=== PATIENT | male | born 1965 | race African-American/Black ===

== ENCOUNTER → 2016-12-09 | Day surgery (SDC) | payer OTHER ==
[~2016-12-09] MED LIST: NO MEDICATIONS
--- NOTE | ~2016-12-09 | OR ---
Unit #: [id number] #: [id number] Patient: PETAR HELLER [id number] [address] [address] [id number] MR#: [id number] NAME: PETAR HELLER ROOM: Date of Procedure: 12/09/2016 Admission Date: 12/09/2016 Surgeon: Shravan Arauz M.D. : 1965 Attending Physician: Shravan Arauz M.D. Primary Care Physician: Destinee Phillips M.D. OPERATIVE REPORT PROCEDURE PERFORMED Colonoscopy to cecum. INDICATIONS FOR PROCEDURE Average risk for colorectal cancer. MEDICATIONS Monitored anesthesia. POSTOP FINDINGS 1. Normal exam. 2. Good prep. 3. Internal hemorrhoids. PLAN Repeat colonoscopy in 10 years. DESCRIPTION OF PROCEDURE The patient was explained of the procedure, risks, and benefits along with risks and benefits of anesthesia. He was brought to the endoscopy room. Propofol anesthesia was given. Rectal exam was done, which was normal. Colonoscope was lubricated, passed up the rectum, advanced under direct vision all the way to the cecum. Cecum was identified by ileocecal valve and appendiceal orifice. I then started to pull the scope out carefully looking. No polyps, masses, or colitis were seen. Mucosa was normal and healthy. I retroflexed in the rectum, internal hemorrhoids noted. Gently, the scope was pulled out. He tolerated it well. Dictated by... Lisa Calvo/kareem TD: 12/10/2016 08:54 JOB #: [id number] CC: Destinee Phillips M.D. Unit #: [id number] #: [id number] Patient: PETAR HELLER OPERATIVE REPORT Page 1 of 1 X Shravan Arauz MD X PROCEDURE OPERATIVE NOTE
== END | disposition home or self-care (01) ==
LOC: COPS 06:05
DX: Z12.11 Encounter for screening for malignant neoplasm of colon (principal); K64.8 Other hemorrhoids; E05.90 Thyrotoxicosis, unspecified without thyrotoxic crisis or storm; Z98.52 Vasectomy status